=== PATIENT | female | born 1950 | race Caucasian/White ===

== ENCOUNTER 2017-07-06 19:26 | Emergency (ER) | payer MEDICARE, OTHER ==
[2017-07-06] MEDS ORDERED: Cyclobenzaprine 10 MG Tab PO ONE (19:27)
[2017-07-06] MEDS ORDERED: Acetaminophen/oxyCODONE 325-5 MG Tab PO ONE (19:27)
[2017-07-06 20:10] VITALS: BP 148/87
[2017-07-06] MEDS ORDERED: Ibuprofen 800 MG Tab PO ONE (22:22)
[2017-07-06] MEDS ORDERED: Ondansetron 4 MG Tab.DIS PO ONE (22:24)
--- NOTE | 2017-07-06 22:30 | EDM.PDOC ---
ED HPI GENERAL MEDICAL PROBLEM - General Chief Complaint: Upper Extremity Injury/Pain Stated Complaint: SHOULDER IN SEVERE PAIN, [id number] Time Seen by Provider: 07/06/17 22:03 Source of Information: Reports: Patient History Limitations: Reports: No Limitations - History of Present Illness INITIAL COMMENTS - FREE TEXT/NARRATIVE: c/o sever pain to right shoulder after playing ball with grandchild, notes reaching to catch ball and fell forwrd. Reacheout to brace fall with left arm and fell over to right shoulder on to concrete. No gross deformity. Unable to move upper extremity due to pain in shoulder and radiation of becerril down arm. No other injury. Right Shoulder Pain Score (Numeric/FACES): 9 - Related Data Allergies Allergy/AdvReac Type Severity Reaction Status Date / Time No Known Drug Allergies Allergy Unknown Other Verified 07/06/17 20:07 Home Meds: Home Meds NK [No Known Home Meds] 07/06/17 [History] Past Medical History - Past Surgical History HEENT Surgical History: Reports: Tonsillectomy Female Surgical History: Reports: Hysterectomy Social & Family History - Tobacco Use Smoking Status *Q: Never Smoker - Caffeine Use Caffeine Use: Reports: Soda - Recreational Drug Use Recreational Drug Use: No Review of Systems - Review of Systems Review Of Systems: ROS reveals no pertinent complaints other than HPI. ED EXAM, GENERAL - Physical Exam Exam: See Below Exam Limited By: No Limitations General Appearance: Alert, Moderate Distress Eye Exam: Bilateral Eye: PERRL Ears: Normal External Exam Nose: Normal Inspection Throat/Mouth: Normal Voice Head: Atraumatic, Normocephalic Neck: Normal Inspection, Full Range of Motion Respiratory/Chest: No Respiratory Distress Cardiovascular: Normal Peripheral Pulses, Regular Rate, Rhythm Extremities: Other (pain right shoulder with palpation and any movement. distal extremity notender with paslpation, pain present radiating from shoulder with any movment. ). No: Normal Range of Motion Neurological: Alert, Oriented, Normal Cognition Skin Exam: Warm, Dry, Intact, Normal Color Course - Vital Signs Last Recorded V/S: Last Vital Signs Temp 98.8 F 07/06/17 20:13 Pulse 77 07/06/17 20:13 Resp 20 07/06/17 20:13 BP 148/87 H 07/06/17 20:13 Pulse Ox 98 07/06/17 20:13 - Orders/Labs/Meds Meds: Medications Discontinued Medications Generic Name Dose Route Start Last Admin Trade Name Matilde PRN Reason Stop Dose Admin Cyclobenzaprine HCl Confirm 07/06/17 22:37 07/06/17 23:03 Flexeril Administered 07/06/17 22:38 Not Given Dose 10 mg .ROUTE .STK-MED ONE Ibuprofen 800 mg 07/06/17 22:22 07/06/17 22:27 Motrin PO 07/06/17 22:23 800 mg ONETIME ONE Administration Ondansetron HCl 4 mg 07/06/17 22:24 07/06/17 22:27 Zofran Odt PO 07/06/17 22:25 4 mg ONETIME ONE Administration Oxycodone/Acetaminophen Confirm 07/06/17 22:37 07/06/17 23:03 Percocet 325-5 Mg Administered 07/06/17 22:38 Not Given Dose 2 tab .ROUTE .STK-MED ONE - Radiology Interpretation Free Text/Narrative:: Impacted fracture fo right humeral neck with subtle lucency of greater trochanter - Re-Assessments/Exams Free Text/Narrative Re-Assessment/Exam: 07/06/17 22:[address] Toro Ochoa ortho. Recommend sling or immpbilizer and follow up in 2 weeks. Noted he would review films in am and follow if any other therappy advised. Patient here visiting from [place]. Notes she is planning to cut visit short and return to [place] Departure - Departure Time of Disposition: 22:27 Disposition: Home, Self-Care 01 Condition: Fair Clinical Impression: Fracture of neck of humerus Qualifiers: Encounter type: initial encounter Fracture type: closed Laterality: right Qualified Code(s): S42.211A - Unspecified displaced fracture of surgical neck of right humerus, initial encounter for closed fracture - Discharge Information Instructions: Shoulder Fracture (Proximal Humerus or Glenoid)-[employer] Forms: ED Department Discharge Additional Instructions: shoulder immobilizer repeat xray 2 weeks flexeril 10mg 1/2 - 1 every 8 hours as needed for spasm percocet 5/325 one every 6 hours as needed for severe pain ibuprofen 600-800mg every 8 hours as needed for moderate to severe pain ice to shoulder area. (Dr. [facility] to review films)
[2017-07-06] MEDS ORDERED: Cyclobenzaprine 10 MG Tab ONE (22:37)
[2017-07-06] MEDS ORDERED: Acetaminophen/oxyCODONE 325-5 MG Tab ONE (22:37)
== END 2017-07-06 23:05 | disposition home or self-care (01) ==
LOC: DL.ED 19:26
DX: S42.211A Unspecified displaced fracture of surgical neck of right humerus, initial encounter for closed fracture (principal); Z90.710 Acquired absence of both cervix and uterus; Z98.890 Other specified postprocedural states; W19.XXXA Unspecified fall, initial encounter; Y93.89 Activity, other specified
CPT/HCPCS: 73030; 99283; A9270